=== PATIENT | female | born 1950 | race Caucasian/White ===

== ENCOUNTER 2019-04-26 15:09 | Emergency (ER) | payer OTHER ==
[~2019-04-26] VITALS: Ht 162.6 cm; Wt 95.3 kg
[2019-04-26 15:16] VITALS: BP 144/83
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
[2019-04-26] MEDS ORDERED: Acetaminophen 500mg (ES) tab ORAL ONE (15:30)
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
--- NOTE | 2019-04-26 16:27 | Diagnostic Imaging Report ---
EXAM: CT Head Without Intravenous Contrast CLINICAL HISTORY: PAIN TECHNIQUE: Axial computed tomography images of the head/brain without intravenous contrast. Coronal images were obtained and reviewed. CTDI is 70.38 mGy and DLP is 1886 mGy-cm. One or more of the following dose reduction techniques were used: automated exposure control, adjustment of the mA and/or kV according to patient size, use of iterative reconstruction technique. COMPARISON: No relevant prior studies available. FINDINGS: Brain: Unremarkable. No evidence of acute intracranial hemorrhage. No significant white matter disease. No edema. No mass effect or midline shift. Ventricles: Unremarkable. No ventriculomegaly. Bones/joints: Unremarkable. No depressed skull fracture. Soft tissues: Unremarkable. Sinuses: Unremarkable as visualized. No acute sinusitis. Mastoid air cells: Unremarkable as visualized. No mastoid effusion. IMPRESSION: Unremarkable noncontrast CT of the head/brain.
--- NOTE | 2019-04-26 16:32 | Diagnostic Imaging Report ---
EXAM: CT Cervical Spine Without Intravenous Contrast CLINICAL HISTORY: PAIN TECHNIQUE: Axial computed tomography images of the cervical spine without intravenous contrast. CTDI is 19.88 mGy and DLP is 422.54 mGy-cm. One or more of the following dose reduction techniques were used: automated exposure control, adjustment of the mA and/or kV according to patient size, use of iterative reconstruction technique. Coronal and sagittal images were obtained and reviewed. COMPARISON: No relevant prior studies available. FINDINGS: Vertebrae: Straightening of the cervical curvature. No visible displaced fracture. Cervical body heights are preserved. The atlantodens interval appears unremarkable. Discs/spinal canal/neural foramina: Multilevel degenerative disc space loss, facet and uncovertebral hypertrophy, and endplate osteophytes throughout the cervical spine, most prominent from C4-5-C6-7.. Soft tissues: Unremarkable. IMPRESSION: 1. No evidence of cervical spine fracture or malalignment. 2. Straightening of the cervical curvature may suggest muscle spasm. 3. Multilevel degenerative changes throughout the cervical spine.
--- NOTE | 2019-04-26 16:35 | Diagnostic Imaging Report ---
EXAM: CT Lumbar Spine Without Intravenous Contrast CLINICAL HISTORY: PAIN TECHNIQUE: Axial computed tomography images of the lumbar spine without intravenous contrast. CTDI is 23.72 mGy and DLP is 623 mGy-cm. One or more of the following dose reduction techniques were used: automated exposure control, adjustment of the mA and/or kV according to patient size, use of iterative reconstruction technique. Coronal and sagittal images were obtained and reviewed. COMPARISON: No relevant prior studies available. FINDINGS: Vertebrae: No acute findings. 5 [id number] lumbar vertebral segments. Lumbar vertebral body heights are preserved. Normal alignment. Discs/spinal canal/neural foramina: Moderate multilevel degenerative changes throughout the lumbar spine, with disc space loss and endplate osteophytes. Additionally bilateral facet arthrosis, most prominent at L4-5 and L5-S1. Soft tissues: Unremarkable. IMPRESSION: 1. No evidence of lumbar spine fracture or malalignment. 2. Moderate multilevel degenerative changes throughout the lumbar spine.
[2019-04-26] MEDS ORDERED: CYCLOBENZAPRINE10 MG ORAL (17:10)
[2019-04-26 17:30] VITALS: BP 142/70
--- NOTE | 2019-04-26 17:31 | NUR ---
ER DISCHARGE NOTE: soft c-collar applied as ordered. Patient is cleared to be discharged per ERMD with family member, pt is aox4, on room air, with stable vital signs. pt was given dc and prescription instructions, pt was able to verbalize understanding, pt id band removed. pt is able to ambulate with steady gait. pt took all belongings.
== END 2019-04-26 17:31 | disposition home or self-care (01) ==
LOC: EDBD 15:09 → EMR 17:12
DX: S16.1XXA Strain of muscle, fascia and tendon at neck level, initial encounter (principal); S39.012A Strain of muscle, fascia and tendon of lower back, initial encounter; V43.52XA Car driver injured in collision with other type car in traffic accident, initial encounter; Y92.410 Unspecified street and highway as the place of occurrence of the external cause
CPT/HCPCS: 70450; 72125; 72131; 99284